=== PATIENT | male | born 2000 | race Caucasian/White ===

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

== ENCOUNTER 2025-07-29 09:32 | Emergency (ER) | payer OTHER, SELFPAY ==
[2025-07-29] VITALS (7 sets, daily range): BP systolic 159–163; BP diastolic 81–89; PULSE 98–113; RESP 22; TEMP 37; O2SAT 96–98; BMI 35.4
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
[2025-07-29] MEDS: LACTATED RINGERS 1,000 ML 1000 ML IV (10:08)
== END 2025-07-29 11:27 | disposition home or self-care (01) ==
PROVIDERS: Emergency Provider Family Medicine
DX: S59.902A Unspecified injury of left elbow, initial encounter (principal); S29.9XXA Unspecified injury of thorax, initial encounter; S19.9XXA Unspecified injury of neck, initial encounter; S09.90XA Unspecified injury of head, initial encounter; S99.912A Unspecified injury of left ankle, initial encounter; V23.49XA Other motorcycle driver injured in collision with car, pick-up truck or van in traffic accident, initial encounter
CPT/HCPCS: 70450; 71045; 71275; 72125; 73080; 73610; 74177; 96360; 99284; 99285; Q9967